=== PATIENT | female | born 1945 | race Caucasian/White ===

== ENCOUNTER 2019-08-07 20:40 | Emergency (ER) | payer MEDICARE, OTHER ==
[~2019-08-07] VITALS: Ht 170.2 cm; Wt 102.5 kg
[2019-08-07 21:58] LABS: BASOPHILS # (AUTO) 0.03 x10^3/uL (0-0.1); BASOPHILS % (AUTO) 0 % (0-1); EOSINOPHILS # (AUTO) 0.15 x10^3/uL (0-0.4); EOSINOPHILS % (AUTO) 2 % (1-7); LYMPHOCYTES # (AUTO) 1.62 x10^3/uL (1-3.4); LYMPHOCYTES % (AUTO) 19 % (22-44); MD NO; MEAN CORPUSCULAR HEMOGLOBIN 31.1 pg (27.0-34.8); MEAN CORPUSCULAR HGB CONC 33.1 g/dL (32.4-35.8); MEAN PLATELET VOLUME 8.9 fL (7.4-10.4); MONOCYTES % (AUTO) 6 % (2-9); NEUTROPHILS # (AUTO) 6.17 x10^3/uL (1.8-6.8); NEUTROPHILS % (AUTO) 73 % (42-75); PLATELET COUNT 275 x10^3/uL (130-400); RED BLOOD COUNT 4.57 x10^6/uL (3.82-5.3); RED CELL DISTRIBUTION WIDTH 14.4 % (9.6-15.2)
[2019-08-07] MEDS ORDERED: SODIUM CHLORIDE 0.9% 1,000ML IVBOLUS ONE (22:00)
[2019-08-07 22:10] LABS: ALBUMIN 3.5 g/dL (3.4-5.0); ANION GAP 6 mmol/L (5-15); CHLORIDE 114 mmol/L (98-107); CREATININE 0.93 mg/dL (0.55-1.02)
--- NOTE | 2019-08-07 22:13 | NUR ---
SPOUSE GIVEN A CUP OF WATER FOR HIMSELF PER REQUEST. POC DISCUSSED. PT TO CT NOW.
[2019-08-07 22:14] LABS: TROPONIN I < 0.015 ng/mL (0.000-0.045)
--- NOTE | 2019-08-07 22:38 | NUR ---
PT AMBULATES TO RESTROOM AND BACK INTO BED WITH STEADY GAIT. ORTHOS DONE. DISCUSSED PLAN WITH MD. PLAN TO DC. PT UP FOR RECHECK AT THIS TIME.
[2019-08-07 23:06] VITALS: BP 124/74
== END 2019-08-07 23:08 | disposition home or self-care (01) ==
LOC: ED 22:23
DX: R55 Syncope and collapse (principal); E86.0 Dehydration; I10 Essential (primary) hypertension; E78.00 Pure hypercholesterolemia, unspecified; Z72.89 Other problems related to lifestyle
CPT/HCPCS: 36415; 70450; 71045; 72125; 80048; 82040; 83880; 84484; 85025; 93005; 96360; 99284; J7030